=== PATIENT | male | born 1960 | race Hispanic/Latino ===

== ENCOUNTER 2021-12-13 14:40 | Inpatient (IN) | payer OTHER ==
[~2021-12-13] VITALS: Ht 167.6 cm; Wt 63.8 kg
[2021-12-13] MEDS ORDERED: PANTOPRAZOLE 40 MG/VIAL IVP ONE (15:00)
[2021-12-13] MEDS ORDERED: 0.9%NACL 1000ML 1,000 ML IV ONE (15:00)
[2021-12-13] MEDS ORDERED: ONDANSETRON 4MG INJ IVP ONE (15:00)
[2021-12-13 15:09] LABS: BASOPHILS % (AUTO) 0.2 % (0.0-5.0); HEMATOCRIT 40.3 % (42-54); LYMPHOCYTES % (AUTO) 4.8 % (21.0-51.0); MEAN CORPUSCULAR HEMOGLOBIN 35.7 pg (27.0-33.0); MEAN CORPUSCULAR HGB CONC 38.2 g/dL (32.0-36.0); MEAN CORPUSCULAR VOLUME 93.5 fL (79-99); NEUTROPHILS % (AUTO) 86.7 % (40.0-77.0); PLATELET COUNT (AUTO) 205 K/uL (130-400); RED BLOOD CELL COUNT(AUTO) 4.31 MIL/uL (4.50-6.20); RED CELL DISTRIBUTION WIDTH 11.7 % (11.0-15.5)
[2021-12-13 15:27] LABS: ALBUMIN 4.4 g/dL (3.5-5.0); CREATININE 1.8 mg/dL (0.5-1.5); POTASSIUM 3.2 mmol/L (3.5-5.1); TOTAL PROTEIN, SERUM 8.3 g/dL (6.0-8.3)
[2021-12-13 15:31] LABS: INR 1.05 (0.85-1.15); PROTHROMBIN TIME 11.4 SEC (9.6-11.6)
[2021-12-13 15:32] LABS: PARTIAL THROMBOPLASTIN TIME 29.1 SEC (26.3-35.5)
[2021-12-13 15:40] LABS: APPEARANCE,URINE CLEAR (CLEAR); BILIRUBIN,URINE LARGE (NEGATIVE); COLOR,URINE YELLOW (YELLOW); GLUCOSE, URINE (UA) NEGATIVE (NEGATIVE); KETONES,URINE 15 mg/dL (NEGATIVE); LEUKOCYTE ESTERASE ,URINE NEGATIVE (NEGATIVE); NITRATE,URINE NEGATIVE (NEGATIVE); OCCULT BLOOD,URINE NEGATIVE (NEGATIVE); PROTEIN,URINE TRACE mg/dL (NEGATIVE); UROBILINOGEN,URINE 0.2 mg/dL (0.2-1.0)
[2021-12-13 15:46] LABS: AMPHET/METH SCREEN,URINE NEGATIVE (NEGATIVE); BARBITURATE SCREEN, URINE NEGATIVE (NEGATIVE); BENZODIAZEPINES SCREEN,URINE NEGATIVE (NEGATIVE); CANNABINOID SCREEN,URINE POSITIVE (NEGATIVE); COCAINE SCREEN,URINE POSITIVE (NEGATIVE); PHENCYCLIDINE SCREEN,URINE NEGATIVE (NEGATIVE)
[2021-12-13 15:56] LABS: RBC,URINE 0-1 /HPF (0-1); WBC,URINE 0-1 /HPF (0-1)
[2021-12-13 15:57] LABS: BACTERIA,URINE Few /HPF (None Seen); SQUAMOUS EPITHELIAL CELL,UR Rare /HPF (0-2)
[2021-12-13] MEDS ORDERED: 0.9%NACL 1000ML 1,000 ML IV SCH (16:00)
[2021-12-13] MEDS ORDERED: LORAZEPAM 2 MG/ML 1 ML VIAL IVP PRN (20:30)
[2021-12-13] MEDS ORDERED: PHARMACY COMMUNICATION MISC PRN (20:30)
[2021-12-13] MEDS ORDERED: HEPARIN 5,000 UNIT VIAL SQ SCH (21:00)
[2021-12-13] MEDS: M.V.I. IV [ADULT] 10 ML, FOLIC ACID 1 MG, THIAMINE HCL 100 MG in 0.9%NACL 1000ML 1,000 ML IV SCH (21:16)
[2021-12-13] MEDS: CHLORDIAZEPOXIDE HCL 25 MG CAP PO SCH (21:16)
[2021-12-13] MEDS: PANTOPRAZOLE 40 MG/VIAL IVP SCH (21:16)
[2021-12-13 21:50] LABS: CREATININE,URINE RANDOM 251 mg/dL (30-135); SODIUM,URINE RANDOM < 14 mmol/l (40-220)
[2021-12-13] MEDS: KCL 20 MEQ ERTAB PO PRN (22:29)
[2021-12-13 22:55] VITALS: BP 119/74
[2021-12-13] MEDS: ONDANSETRON 4MG INJ IV PRN (23:24)
[2021-12-13] MEDS ORDERED: SODIUM CHLORIDE 7% INHALATION 4 ML VIAL.NEB IH ONE (23:53)
[2021-12-14] MEDS: KCL 20 MEQ ERTAB PO PRN ×3 (00:34→18:11)
[2021-12-14] MEDS: POTASSIUM CHLORIDE 10% ELIXIR 20 MEQ/15 ML UDCUP PO PRN (02:44)
[2021-12-14 03:45] VITALS: BP 126/78
[2021-12-14] MEDS: CHLORDIAZEPOXIDE HCL 25 MG CAP PO SCH ×3 (03:55→20:05)
[2021-12-14 05:39] LABS: BASOPHILS % (AUTO) 0.1 % (0.0-5.0); HEMATOCRIT 32.9 % (42-54); MEAN CORPUSCULAR HEMOGLOBIN 35.4 pg (27.0-33.0); MEAN CORPUSCULAR HGB CONC 36.8 g/dL (32.0-36.0); MEAN CORPUSCULAR VOLUME 96.2 fL (79-99); MONOCYTES % (AUTO) 11.6 % (3.0-13.0); NEUTROPHILS % (AUTO) 81.4 % (40.0-77.0); PLATELET COUNT (AUTO) 135 K/uL (130-400); RED BLOOD CELL COUNT(AUTO) 3.42 MIL/uL (4.50-6.20); RED CELL DISTRIBUTION WIDTH 11.9 % (11.0-15.5); WHITE BLOOD COUNT (AUTO) 6.8 K/uL (4.8-10.8)
[2021-12-14 05:56] LABS: CREATININE 0.8 mg/dL (0.5-1.5); MAGNESIUM 1.5 mg/dL (1.80-2.40); PHOSPHORUS 2.1 mg/dL (2.5-4.9); POTASSIUM 3.5 mmol/L (3.5-5.1)
[2021-12-14] MEDS: MAGNESIUM 2GM PREMIX 50ML 50 ML IV PRN (06:12)
[2021-12-14] MEDS ORDERED: SODIUM CHLORIDE 7% INHALATION 4 ML VIAL.NEB IH ONE (06:15)
[2021-12-14 08:50] VITALS: BP 119/71
[2021-12-14] MEDS: PANTOPRAZOLE 40 MG/VIAL IVP SCH ×2 (08:54→20:05)
[2021-12-14] MEDS ORDERED: OCTREOTIDE ACETATE 100 MCG/ML AMP SQ SCH (10:30)
[2021-12-14] MEDS ORDERED: COMPOUND IV REFRIGERATED 1 EACH IVSOLN MISC PRN (10:30)
[2021-12-14] MEDS ORDERED: OCTREOTIDE ACETATE 1,250 MCG in 0.9% NACL 250ML 250 ML IV SCH (10:30)
[2021-12-14 11:44] LABS: HEMATOCRIT 34.7 % (42-54)
[2021-12-14 11:53] LABS: CREATININE 0.7 mg/dL (0.5-1.5); POTASSIUM 3.7 mmol/L (3.5-5.1)
[2021-12-14 12:00] VITALS: BP 152/94
[2021-12-14 16:00] VITALS: BP 163/94
[2021-12-14 17:42] LABS: HEMATOCRIT 33.3 % (42-54)
[2021-12-14] MEDS: LIDOCAINE HCL 2% VISCOUS 15 ML UDCUP PO SCH ×2 (18:11→23:20)
[2021-12-14 19:59] VITALS: BP 153/88
[2021-12-14] MEDS: M.V.I. IV [ADULT] 10 ML, FOLIC ACID 1 MG, THIAMINE HCL 100 MG in 0.9%NACL 1000ML 1,000 ML IV SCH (20:06)
[2021-12-14 23:48] VITALS: BP 132/77
[2021-12-15] VITALS (22 sets, daily range): BP systolic 129–186; BP diastolic 66–103
[2021-12-15 00:33] LABS: HEMATOCRIT 32.6 % (42-54)
[2021-12-15] MEDS: CHLORDIAZEPOXIDE HCL 25 MG CAP PO SCH (03:31)
[2021-12-15] MEDS: LIDOCAINE HCL 2% VISCOUS 15 ML UDCUP PO SCH ×3 (05:31→17:35)
[2021-12-15 05:48] LABS: HEMATOCRIT 31.7 % (42-54)
[2021-12-15 05:58] LABS: MAGNESIUM 1.8 mg/dL (1.80-2.40)
[2021-12-15 06:02] LABS: POTASSIUM 2.9 mmol/L (3.5-5.1)
[2021-12-15] MEDS: MAGNESIUM 2GM PREMIX 50ML 50 ML IV PRN (06:27)
[2021-12-15] MEDS: LIDOCAINE HCL-MPF 1% 2ML VIAL IV PRN (06:28)
[2021-12-15] MEDS: POTASSIUM CHLORIDE 10MEQ/100ML 100 ML IV PRN ×2 (06:28→08:32)
[2021-12-15 08:21] LABS: HEMATOCRIT 31.7 % (42-54); POTASSIUM 2.9 mmol/L (3.5-5.1)
[2021-12-15 08:24] LABS: MEAN CORPUSCULAR HEMOGLOBIN 35.7 pg (27.0-33.0); MEAN CORPUSCULAR HGB CONC 36.4 g/dL (32.0-36.0); MEAN CORPUSCULAR VOLUME 97.9 fL (79-99); RED BLOOD CELL COUNT(AUTO) 3.28 MIL/uL (4.50-6.20); RED CELL DISTRIBUTION WIDTH 11.7 % (11.0-15.5); WHITE BLOOD COUNT (AUTO) 3.2 K/uL (4.8-10.8)
[2021-12-15 08:29] LABS: CREATININE 0.7 mg/dL (0.5-1.5)
[2021-12-15] MEDS: PANTOPRAZOLE 40 MG/VIAL IVP SCH ×2 (08:32→21:11)
[2021-12-15 11:23] LABS: HEMATOCRIT 34.1 % (42-54)
[2021-12-15] MEDS ORDERED: PROPOFOL 10 MG/ML 20ML VIAL IV ONE (16:00)
[2021-12-15] MEDS ORDERED: HYDRALAZINE 20MG/ML VIAL IV PRN (17:30)
[2021-12-15] MEDS ORDERED: HYDRALAZINE 25MG TABLET PO SCH (17:41)
[2021-12-15] MEDS: HYDRALAZINE 25MG TABLET PO SCH (17:51)
[2021-12-15] MEDS ORDERED: AMLODIPINE 5 MG TAB PO ONE (18:00)
[2021-12-15] MEDS ORDERED: LIDOCAINE HCL 2% VISCOUS 15 ML UDCUP PO PRN (19:30)
[2021-12-15] MEDS: M.V.I. IV [ADULT] 10 ML, FOLIC ACID 1 MG, THIAMINE HCL 100 MG in 0.9%NACL 1000ML 1,000 ML IV SCH (21:00)
[2021-12-15] MEDS: KCL 20 MEQ ERTAB PO PRN (21:11)
[2021-12-16 03:27] VITALS: BP 128/82
[2021-12-16 04:57] LABS: BASOPHILS % (AUTO) 0.8 % (0.0-5.0); EOSINOPHILS % (AUTO) 1.7 % (0.0-8.0); LYMPHOCYTES % (AUTO) 18.8 % (21.0-51.0); MEAN CORPUSCULAR HEMOGLOBIN 35.4 pg (27.0-33.0); MEAN CORPUSCULAR HGB CONC 35.8 g/dL (32.0-36.0); MEAN CORPUSCULAR VOLUME 98.9 fL (79-99); MONOCYTES % (AUTO) 10.5 % (3.0-13.0); NEUTROPHILS % (AUTO) 67.6 % (40.0-77.0); PLATELET COUNT (AUTO) 127 K/uL (130-400); RED BLOOD CELL COUNT(AUTO) 3.64 MIL/uL (4.50-6.20); RED CELL DISTRIBUTION WIDTH 11.6 % (11.0-15.5); WHITE BLOOD COUNT (AUTO) 3.6 K/uL (4.8-10.8)
[2021-12-16 05:09] LABS: CREATININE 0.7 mg/dL (0.5-1.5); MAGNESIUM 1.8 mg/dL (1.80-2.40); POTASSIUM 3.4 mmol/L (3.5-5.1)
[2021-12-16] MEDS: KCL 20 MEQ ERTAB PO PRN ×2 (05:46→10:35)
[2021-12-16] MEDS: MAGNESIUM 2GM PREMIX 50ML 50 ML IV PRN (05:47)
[2021-12-16 08:00] VITALS: BP 140/73
[2021-12-16] MEDS: M.V.I. IV [ADULT] 10 ML, FOLIC ACID 1 MG, THIAMINE HCL 100 MG in 0.9%NACL 1000ML 1,000 ML IV SCH ×2 (08:40→22:11)
[2021-12-16] MEDS: AMLODIPINE 5 MG TAB PO SCH (09:49)
[2021-12-16] MEDS: PANTOPRAZOLE 40 MG/VIAL IVP SCH ×2 (09:49→20:29)
[2021-12-16 11:47] VITALS: BP 131/71
[2021-12-16] MEDS ORDERED: PANT40TA PO (12:01)
[2021-12-16] MEDS ORDERED: FOLI0.4T6 PO (12:01)
[2021-12-16] MEDS ORDERED: THIA500T3 PO (12:01)
[2021-12-16 13:10] LABS: OPIATES SCREEN URINE Negative ng/mL (Cutoff=300)
[2021-12-16 20:00] VITALS: BP 145/85
[2021-12-16] MEDS: PAROXETINE HCL 20 MG TABLET PO SCH (20:29)
[2021-12-17] VITALS: BP 144/80
[2021-12-17 04:00] VITALS: BP 147/77
[2021-12-17 05:30] LABS: CREATININE 0.6 mg/dL (0.5-1.5); POTASSIUM 3.5 mmol/L (3.5-5.1)
[2021-12-17 05:32] LABS: HEMATOCRIT 32.8 % (42-54); MEAN CORPUSCULAR HEMOGLOBIN 34.7 pg (27.0-33.0); MEAN CORPUSCULAR HGB CONC 35.7 g/dL (32.0-36.0); MEAN CORPUSCULAR VOLUME 97.3 fL (79-99); RED BLOOD CELL COUNT(AUTO) 3.37 MIL/uL (4.50-6.20); RED CELL DISTRIBUTION WIDTH 11.2 % (11.0-15.5); WHITE BLOOD COUNT (AUTO) 3.7 K/uL (4.8-10.8)
[2021-12-17] MEDS: POTASSIUM CHLORIDE 10% ELIXIR 20 MEQ/15 ML UDCUP PO PRN (06:58)
[2021-12-17 08:00] VITALS: BP 163/87
[2021-12-17] MEDS: PAROXETINE HCL 20 MG TABLET PO SCH (09:49)
[2021-12-17] MEDS: AMLODIPINE 5 MG TAB PO SCH (09:49)
[2021-12-17] MEDS: PANTOPRAZOLE 40 MG/VIAL IVP SCH ×2 (09:49→19:50)
[2021-12-17 12:00] VITALS: BP 125/68
[2021-12-17] MEDS ORDERED: MAGNESIUM 2GM PREMIX 50ML 50 ML IV PRN (15:00)
[2021-12-17 16:00] VITALS: BP 149/91
[2021-12-17] MEDS: MAGNESIUM 2GM PREMIX 50ML 50 ML IV PRN (16:05)
[2021-12-17] MEDS ORDERED: FLUOXETINE HCL 20 MG CAPSULE PO ONE (16:30)
[2021-12-17] MEDS: HYDRALAZINE 25MG TABLET PO SCH (16:51)
[2021-12-17] MEDS: M.V.I. IV [ADULT] 10 ML, FOLIC ACID 1 MG, THIAMINE HCL 100 MG in 0.9%NACL 1000ML 1,000 ML IV SCH (19:50)
[2021-12-17 20:00] VITALS: BP 152/78
[2021-12-17] MEDS: ONDANSETRON 4MG INJ IV PRN (20:44)
[2021-12-18] VITALS: BP 160/84
[2021-12-18] MEDS ORDERED: CHLORDIAZEPOXIDE HCL 10 MG CAPSULE PO PRN ×2 (01:20→01:30)
[2021-12-18] MEDS: ACETAMINOPHEN 325 MG TAB PO PRN ×3 (01:29→18:41)
[2021-12-18] MEDS ORDERED: CHLORDIAZEPOXIDE HCL 25 MG CAP ONE (01:34)
[2021-12-18 04:00] VITALS: BP 128/69
[2021-12-18] MEDS: MAGNESIUM 2GM PREMIX 50ML 50 ML IV PRN (05:37)
[2021-12-18 07:45] VITALS: BP 98/60
[2021-12-18] MEDS: FLUOXETINE HCL 10 MG CAPSULE PO SCH (08:16)
[2021-12-18] MEDS: PANTOPRAZOLE 40 MG/VIAL IVP SCH ×2 (08:16→20:34)
[2021-12-18] MEDS: AMLODIPINE 5 MG TAB PO SCH (08:16)
[2021-12-18] MEDS ORDERED: MAGNESIUM 2GM PREMIX 50ML 50 ML IV PRN (08:30)
[2021-12-18] MEDS ORDERED: CHLORDIAZEPOXIDE HCL 10 MG CAPSULE PO SCH (09:00)
[2021-12-18 11:45] VITALS: BP 129/76
[2021-12-18 12:14] LABS: APPEARANCE,URINE CLEAR (CLEAR); BILIRUBIN,URINE NEGATIVE (NEGATIVE); COLOR,URINE YELLOW (YELLOW); GLUCOSE, URINE (UA) NEGATIVE (NEGATIVE); KETONES,URINE 5 mg/dL (NEGATIVE); LEUKOCYTE ESTERASE ,URINE NEGATIVE (NEGATIVE); NITRATE,URINE NEGATIVE (NEGATIVE); OCCULT BLOOD,URINE NEGATIVE (NEGATIVE); PH,URINE 6.5 (5.0-8.0); PROTEIN,URINE NEGATIVE (NEGATIVE)
[2021-12-18 12:32] LABS: BACTERIA,URINE Rare /HPF (None Seen); RBC,URINE 0-1 /HPF (0-1); SQUAMOUS EPITHELIAL CELL,UR Rare /HPF (0-2); WBC,URINE 0-1 /HPF (0-1)
[2021-12-18 15:00] VITALS: BP 143/72
[2021-12-18] MEDS: ZOSYN 3.375GM +NS 50ML IV SCH ×2 (17:37→23:55)
[2021-12-18] MEDS: HYDRALAZINE 25MG TABLET PO SCH (17:38)
[2021-12-18] MEDS: ONDANSETRON 4MG INJ IV PRN (18:44)
[2021-12-18 19:00] VITALS: BP 145/82
[2021-12-18] MEDS: M.V.I. IV [ADULT] 10 ML, FOLIC ACID 1 MG, THIAMINE HCL 100 MG in 0.9%NACL 1000ML 1,000 ML IV SCH (20:34)
[2021-12-19 00:23] VITALS: BP 104/57
[2021-12-19 04:39] VITALS: BP 138/67
[2021-12-19 04:56] LABS: BASOPHILS % (AUTO) 0.3 % (0.0-5.0); EOSINOPHILS % (AUTO) 0.3 % (0.0-8.0); HEMATOCRIT 29.7 % (42-54); LYMPHOCYTES % (AUTO) 8.5 % (21.0-51.0); MEAN CORPUSCULAR HEMOGLOBIN 35.6 pg (27.0-33.0); MEAN CORPUSCULAR HGB CONC 37.4 g/dL (32.0-36.0); MEAN CORPUSCULAR VOLUME 95.2 fL (79-99); NEUTROPHILS % (AUTO) 73.9 % (40.0-77.0); PLATELET COUNT (AUTO) 158 K/uL (130-400); RED BLOOD CELL COUNT(AUTO) 3.12 MIL/uL (4.50-6.20); RED CELL DISTRIBUTION WIDTH 11.6 % (11.0-15.5); WHITE BLOOD COUNT (AUTO) 3.1 K/uL (4.8-10.8)
[2021-12-19 05:38] LABS: CREATININE 0.6 mg/dL (0.5-1.5); MAGNESIUM 1.8 mg/dL (1.80-2.40)
[2021-12-19 05:45] LABS: POTASSIUM 2.6 mmol/L (3.5-5.1)
[2021-12-19] MEDS: LIDOCAINE HCL-MPF 1% 2ML VIAL IV PRN ×2 (05:50→09:43)
[2021-12-19] MEDS: POTASSIUM CHLORIDE 10MEQ/100ML 100 ML IV PRN ×2 (05:50→09:42)
[2021-12-19] MEDS: ACETAMINOPHEN 325 MG TAB PO PRN (05:51)
[2021-12-19] MEDS: KCL 20 MEQ ERTAB PO PRN ×4 (05:51→14:31)
[2021-12-19] MEDS: MAGNESIUM 2GM PREMIX 50ML 50 ML IV PRN (06:37)
[2021-12-19 08:00] VITALS: BP 117/56
[2021-12-19] MEDS: PANTOPRAZOLE 40 MG/VIAL IVP SCH ×2 (09:40→21:15)
[2021-12-19] MEDS: FLUOXETINE HCL 10 MG CAPSULE PO SCH (09:40)
[2021-12-19] MEDS: AMLODIPINE 5 MG TAB PO SCH (09:40)
[2021-12-19] MEDS: ZOSYN 3.375GM +NS 50ML IV SCH ×2 (09:41→16:04)
[2021-12-19 11:53] VITALS: BP 101/66
[2021-12-19] MEDS ORDERED: PHARMACY COMMUNICATION MISC SCH (15:00)
[2021-12-19 16:00] VITALS: BP 134/74
[2021-12-19] MEDS ORDERED: VANCOMYCIN 1.5 GM/250 ML BAG 250 ML IV ONE (17:00)
[2021-12-19] MEDS: HYDRALAZINE 25MG TABLET PO SCH (17:42)
[2021-12-19 19:20] VITALS: BP 129/68
[2021-12-19] MEDS: PHARMACY COMMUNICATION MISC SCH ×2 (20:30→22:30)
[2021-12-19] MEDS: M V I IV SCH (21:12)
[2021-12-19] MEDS: [UNRECOGNIZED DRUG - OTHER] IV SCH (21:12)
[2021-12-19] MEDS: THIAMINE HCL IV SCH (21:12)
[2021-12-19] MEDS: FOLIC ACID IV SCH (21:12)
[2021-12-20] MEDS: ZOSYN 3.375GM +NS 50ML IV SCH ×2 (00:04→11:43)
[2021-12-20 00:17] VITALS: BP 133/75
[2021-12-20 03:36] VITALS: BP 119/73
[2021-12-20 04:26] LABS: HEMATOCRIT 31.7 % (42-54); MEAN CORPUSCULAR HEMOGLOBIN 34.8 pg (27.0-33.0); MEAN CORPUSCULAR HGB CONC 36.6 g/dL (32.0-36.0); MEAN CORPUSCULAR VOLUME 95.2 fL (79-99); RED BLOOD CELL COUNT(AUTO) 3.33 MIL/uL (4.50-6.20); RED CELL DISTRIBUTION WIDTH 11.6 % (11.0-15.5); WHITE BLOOD COUNT (AUTO) 4.4 K/uL (4.8-10.8)
[2021-12-20 04:39] LABS: CREATININE 0.7 mg/dL (0.5-1.5)
[2021-12-20 04:40] LABS: POTASSIUM 2.7 mmol/L (3.5-5.1)
[2021-12-20] MEDS: KCL 20 MEQ ERTAB PO PRN ×5 (05:18→20:26)
[2021-12-20] MEDS ORDERED: VANCOMYCIN 750MG VIAL IVPB SCH (06:00)
[2021-12-20] MEDS: LIDOCAINE HCL-MPF 1% 2ML VIAL IV PRN ×2 (06:44→11:50)
[2021-12-20] MEDS: POTASSIUM CHLORIDE 10MEQ/100ML 100 ML IV PRN ×2 (06:44→11:50)
[2021-12-20 07:35] VITALS: BP 136/81
[2021-12-20 11:35] VITALS: BP 142/80
[2021-12-20] MEDS: AMLODIPINE 5 MG TAB PO SCH (11:43)
[2021-12-20] MEDS: PANTOPRAZOLE 40 MG/VIAL IVP SCH ×2 (11:43→20:18)
[2021-12-20] MEDS: FLUOXETINE HCL 10 MG CAPSULE PO SCH (11:43)
[2021-12-20 15:35] VITALS: BP 115/67
[2021-12-20] MEDS: HYDRALAZINE 25MG TABLET PO SCH (15:38)
[2021-12-20] MEDS: CEFAZOLIN SODIUM 1 GM VIAL IVP SCH ×2 (17:06→23:13)
[2021-12-20 20:00] VITALS: BP 126/66
[2021-12-20] MEDS: THIAMINE HCL IV SCH (21:50)
[2021-12-20] MEDS: M V I IV SCH (21:50)
[2021-12-20] MEDS: [UNRECOGNIZED DRUG - OTHER] IV SCH (21:50)
[2021-12-20] MEDS: FOLIC ACID IV SCH (21:50)
[2021-12-21] VITALS: BP 104/68
[2021-12-21 04:00] VITALS: BP 119/62
[2021-12-21] MEDS: CEFAZOLIN SODIUM 1 GM VIAL IVP SCH ×3 (06:01→23:08)
[2021-12-21 07:29] LABS: BASOPHILS % (AUTO) 0.8 % (0.0-5.0); EOSINOPHILS % (AUTO) 1.8 % (0.0-8.0); HEMATOCRIT 29.2 % (42-54); MEAN CORPUSCULAR HEMOGLOBIN 34.9 pg (27.0-33.0); MEAN CORPUSCULAR HGB CONC 35.6 g/dL (32.0-36.0); MONOCYTES % (AUTO) 16.2 % (3.0-13.0); NEUTROPHILS % (AUTO) 64.4 % (40.0-77.0); PLATELET COUNT (AUTO) 278 K/uL (130-400); RED BLOOD CELL COUNT(AUTO) 2.98 MIL/uL (4.50-6.20); RED CELL DISTRIBUTION WIDTH 11.9 % (11.0-15.5); WHITE BLOOD COUNT (AUTO) 3.9 K/uL (4.8-10.8)
[2021-12-21 07:55] LABS: ALBUMIN 2.8 g/dL (3.5-5.0); CREATININE 0.6 mg/dL (0.5-1.5); CRP QUANTITATIVE 74.1 mg/L (0.00-9.0); MAGNESIUM 1.1 mg/dL (1.80-2.40); POTASSIUM 3.5 mmol/L (3.5-5.1); TOTAL PROTEIN, SERUM 6.4 g/dL (6.0-8.3)
[2021-12-21 08:00] VITALS: BP 105/65
[2021-12-21] MEDS: AMLODIPINE 5 MG TAB PO SCH (09:38)
[2021-12-21] MEDS: FLUOXETINE HCL 10 MG CAPSULE PO SCH (09:38)
[2021-12-21] MEDS: PANTOPRAZOLE 40 MG/VIAL IVP SCH ×2 (09:38→20:15)
[2021-12-21 12:00] VITALS: BP 111/63
[2021-12-21 16:00] VITALS: BP 113/72
[2021-12-21] MEDS: HYDRALAZINE 25MG TABLET PO SCH (18:00)
[2021-12-21 20:00] VITALS: BP 137/78
[2021-12-21] MEDS: FOLIC ACID IV SCH (20:15)
[2021-12-21] MEDS: [UNRECOGNIZED DRUG - OTHER] IV SCH (20:15)
[2021-12-21] MEDS: M V I IV SCH (20:15)
[2021-12-21] MEDS: THIAMINE HCL IV SCH (20:15)
[2021-12-21] MEDS: MAGNESIUM 2GM PREMIX 50ML 50 ML IV PRN (21:45)
[2021-12-21] MEDS: KCL 20 MEQ ERTAB PO PRN ×2 (21:46→23:51)
[2021-12-21] MEDS: ACETAMINOPHEN 325 MG TAB PO PRN (22:18)
[2021-12-22] VITALS: BP 122/69
[2021-12-22 04:00] VITALS: BP 124/83
[2021-12-22 04:56] LABS: CREATININE 0.6 mg/dL (0.5-1.5); MAGNESIUM 1.3 mg/dL (1.80-2.40); POTASSIUM 3.6 mmol/L (3.5-5.1)
[2021-12-22 05:22] LABS: BASOPHILS % (AUTO) 1.6 % (0.0-5.0); EOSINOPHILS % (AUTO) 4.8 % (0.0-8.0); HEMATOCRIT 26.7 % (42-54); LYMPHOCYTES % (AUTO) 20.2 % (21.0-51.0); MEAN CORPUSCULAR HEMOGLOBIN 34.7 pg (27.0-33.0); MEAN CORPUSCULAR HGB CONC 35.6 g/dL (32.0-36.0); MEAN CORPUSCULAR VOLUME 97.4 fL (79-99); MONOCYTES % (AUTO) 14.9 % (3.0-13.0); PLATELET COUNT (AUTO) 334 K/uL (130-400); RED BLOOD CELL COUNT(AUTO) 2.74 MIL/uL (4.50-6.20); RED CELL DISTRIBUTION WIDTH 11.9 % (11.0-15.5); WHITE BLOOD COUNT (AUTO) 3.8 K/uL (4.8-10.8)
[2021-12-22] MEDS: KCL 20 MEQ ERTAB PO PRN ×2 (05:31→18:45)
[2021-12-22] MEDS: MAGNESIUM 2GM PREMIX 50ML 50 ML IV PRN (05:31)
[2021-12-22] MEDS: CEFAZOLIN SODIUM 1 GM VIAL IVP SCH ×3 (06:18→23:03)
[2021-12-22 08:00] VITALS: BP 112/67
[2021-12-22] MEDS: AMLODIPINE 5 MG TAB PO SCH (09:24)
[2021-12-22] MEDS: PANTOPRAZOLE 40 MG/VIAL IVP SCH ×2 (09:24→20:10)
[2021-12-22] MEDS: FLUOXETINE HCL 10 MG CAPSULE PO SCH (09:25)
[2021-12-22 12:00] VITALS: BP 123/74
[2021-12-22 16:00] VITALS: BP 106/69
[2021-12-22] MEDS: HYDRALAZINE 25MG TABLET PO SCH (18:00)
[2021-12-22 20:00] VITALS: BP 120/74
[2021-12-22] MEDS: THIAMINE HCL IV SCH (20:11)
[2021-12-22] MEDS: [UNRECOGNIZED DRUG - OTHER] IV SCH (20:11)
[2021-12-22] MEDS: M V I IV SCH (20:11)
[2021-12-22] MEDS: FOLIC ACID IV SCH (20:11)
[2021-12-23] VITALS (7 sets, daily range): BP systolic 64–129; BP diastolic 57–99
[2021-12-23 05:27] LABS: BASOPHILS % (AUTO) 1.2 % (0.0-5.0); EOSINOPHILS % (AUTO) 4.9 % (0.0-8.0); HEMATOCRIT 29.7 % (42-54); LYMPHOCYTES % (AUTO) 19.6 % (21.0-51.0); MEAN CORPUSCULAR HEMOGLOBIN 34.4 pg (27.0-33.0); MEAN CORPUSCULAR HGB CONC 34.7 g/dL (32.0-36.0); MEAN CORPUSCULAR VOLUME 99.3 fL (79-99); MONOCYTES % (AUTO) 13.5 % (3.0-13.0); NEUTROPHILS % (AUTO) 59.8 % (40.0-77.0); PLATELET COUNT (AUTO) 440 K/uL (130-400); RED BLOOD CELL COUNT(AUTO) 2.99 MIL/uL (4.50-6.20); RED CELL DISTRIBUTION WIDTH 12.1 % (11.0-15.5); WHITE BLOOD COUNT (AUTO) 4.9 K/uL (4.8-10.8)
[2021-12-23 05:30] LABS: CREATININE 0.7 mg/dL (0.5-1.5); MAGNESIUM 1.3 mg/dL (1.80-2.40); POTASSIUM 4.4 mmol/L (3.5-5.1)
[2021-12-23] MEDS: CEFAZOLIN SODIUM 1 GM VIAL IVP SCH ×3 (05:48→23:20)
[2021-12-23] MEDS: AMLODIPINE 5 MG TAB PO SCH (08:19)
[2021-12-23] MEDS: PANTOPRAZOLE 40 MG/VIAL IVP SCH ×2 (08:19→20:59)
[2021-12-23] MEDS: FLUOXETINE HCL 10 MG CAPSULE PO SCH (08:20)
[2021-12-23] MEDS ORDERED: FLUO10CA21 PO (09:55)
[2021-12-23] MEDS ORDERED: MAGNESIUM OXIDE 400 MG TABLET PO SCH (10:30)
[2021-12-23] MEDS: MAGNESIUM 2GM PREMIX 50ML 50 ML IV SCH (11:00)
[2021-12-23] MEDS: HYDRALAZINE 25MG TABLET PO SCH (15:13)
[2021-12-23] MEDS: NYSTATIN 30 GM CREAM.GM. TP SCH (20:59)
[2021-12-23] MEDS: THIAMINE HCL IV SCH (20:59)
[2021-12-23] MEDS: M V I IV SCH (20:59)
[2021-12-23] MEDS: [UNRECOGNIZED DRUG - OTHER] IV SCH (20:59)
[2021-12-23] MEDS: FOLIC ACID IV SCH (20:59)
[2021-12-24 03:51] VITALS: BP 113/63
[2021-12-24] MEDS: CEFAZOLIN SODIUM 1 GM VIAL IVP SCH ×3 (06:25→22:07)
[2021-12-24] MEDS: MAGNESIUM 2GM PREMIX 50ML 50 ML IV SCH (06:26)
[2021-12-24 08:00] VITALS: BP 110/66
[2021-12-24] MEDS: AMLODIPINE 5 MG TAB PO SCH (09:53)
[2021-12-24] MEDS: PANTOPRAZOLE 40 MG/VIAL IVP SCH ×2 (09:53→20:37)
[2021-12-24] MEDS: FLUOXETINE HCL 10 MG CAPSULE PO SCH (09:53)
[2021-12-24] MEDS: NYSTATIN 30 GM CREAM.GM. TP SCH ×2 (09:57→20:37)
[2021-12-24 12:00] VITALS: BP 120/69
[2021-12-24] MEDS: HYDRALAZINE 25MG TABLET PO SCH (14:50)
[2021-12-24 16:00] VITALS: BP 136/69
[2021-12-24 20:00] VITALS: BP 120/68
[2021-12-24 23:40] VITALS: BP 108/61
[2021-12-25 03:25] VITALS: BP 118/62
[2021-12-25] MEDS: CEFAZOLIN SODIUM 1 GM VIAL IVP SCH ×3 (05:37→23:31)
[2021-12-25] MEDS: MAGNESIUM 2GM PREMIX 50ML 50 ML IV SCH (05:38)
[2021-12-25] MEDS: MAGNESIUM OXIDE 400 MG TABLET PO SCH ×2 (07:01→09:13)
[2021-12-25 07:30] VITALS: BP 116/75
[2021-12-25] MEDS: AMLODIPINE 5 MG TAB PO SCH (09:13)
[2021-12-25] MEDS: FLUOXETINE HCL 10 MG CAPSULE PO SCH (09:13)
[2021-12-25] MEDS: NYSTATIN 30 GM CREAM.GM. TP SCH ×2 (09:14→20:44)
[2021-12-25] MEDS: PANTOPRAZOLE 40 MG/VIAL IVP SCH ×2 (09:14→20:44)
[2021-12-25 11:00] VITALS: BP 122/67
[2021-12-25] MEDS ORDERED: THIAMINE HCL 100 MG TABLET PO ONE (13:00)
[2021-12-25 15:30] VITALS: BP 124/73
[2021-12-25] MEDS: HYDRALAZINE 25MG TABLET PO SCH (18:00)
[2021-12-25 21:23] VITALS: BP 148/74
[2021-12-26 00:16] VITALS: BP 142/75
[2021-12-26 04:33] VITALS: BP 137/82
[2021-12-26 05:14] LABS: ALBUMIN 3.4 g/dL (3.5-5.0); CREATININE 0.8 mg/dL (0.5-1.5); MAGNESIUM 1.6 mg/dL (1.80-2.40); TOTAL PROTEIN, SERUM 7.1 g/dL (6.0-8.3)
[2021-12-26] MEDS: CEFAZOLIN SODIUM 1 GM VIAL IVP SCH ×3 (06:25→23:45)
[2021-12-26] MEDS: MAGNESIUM OXIDE 400 MG TABLET PO SCH ×2 (06:26→07:47)
[2021-12-26] MEDS: PANTOPRAZOLE 40 MG/VIAL IVP SCH ×2 (07:47→20:48)
[2021-12-26] MEDS: THIAMINE HCL 100 MG TABLET PO SCH (07:47)
[2021-12-26] MEDS: AMLODIPINE 5 MG TAB PO SCH (07:48)
[2021-12-26] MEDS: NYSTATIN 30 GM CREAM.GM. TP SCH ×2 (07:48→20:48)
[2021-12-26] MEDS: FLUOXETINE HCL 10 MG CAPSULE PO SCH (07:48)
[2021-12-26 08:00] VITALS: BP 118/63
[2021-12-26 12:00] VITALS: BP 147/91
[2021-12-26 16:00] VITALS: BP 130/84
[2021-12-26] MEDS: HYDRALAZINE 25MG TABLET PO SCH (18:00)
[2021-12-26 20:52] VITALS: BP 129/64
[2021-12-27] VITALS: BP 105/58
[2021-12-27 04:00] VITALS: BP 135/77
[2021-12-27] MEDS: CEFAZOLIN SODIUM 1 GM VIAL IVP SCH ×3 (06:22→22:37)
[2021-12-27] MEDS: MAGNESIUM OXIDE 400 MG TABLET PO SCH ×2 (06:25→09:37)
[2021-12-27 08:00] VITALS: BP 130/83
[2021-12-27] MEDS: NYSTATIN 30 GM CREAM.GM. TP SCH ×2 (09:00→19:57)
[2021-12-27] MEDS: PANTOPRAZOLE 40 MG/VIAL IVP SCH ×2 (09:37→19:55)
[2021-12-27] MEDS: THIAMINE HCL 100 MG TABLET PO SCH (09:37)
[2021-12-27] MEDS: AMLODIPINE 5 MG TAB PO SCH (09:37)
[2021-12-27] MEDS: FLUOXETINE HCL 10 MG CAPSULE PO SCH (09:37)
[2021-12-27 12:00] VITALS: BP 132/74
[2021-12-27 16:00] VITALS: BP 86/67
[2021-12-27] MEDS: MAGNESIUM 2GM PREMIX 50ML 50 ML IV SCH (16:51)
[2021-12-27] MEDS: HYDRALAZINE 25MG TABLET PO SCH (16:51)
[2021-12-27 20:00] VITALS: BP 144/78
[2021-12-28 00:17] VITALS: BP 134/79
[2021-12-28 04:54] VITALS: BP 113/42
[2021-12-28] MEDS: CEFAZOLIN SODIUM 1 GM VIAL IVP SCH ×3 (05:46→22:50)
[2021-12-28 08:00] VITALS: BP 107/64
[2021-12-28] MEDS: FLUOXETINE HCL 10 MG CAPSULE PO SCH (09:20)
[2021-12-28] MEDS: PANTOPRAZOLE 40 MG/VIAL IVP SCH ×2 (09:20→21:59)
[2021-12-28] MEDS: MAGNESIUM OXIDE 400 MG TABLET PO SCH (09:20)
[2021-12-28] MEDS: THIAMINE HCL 100 MG TABLET PO SCH (09:20)
[2021-12-28] MEDS: AMLODIPINE 5 MG TAB PO SCH (09:20)
[2021-12-28] MEDS: NYSTATIN 30 GM CREAM.GM. TP SCH ×2 (09:21→22:06)
[2021-12-28 11:00] VITALS: BP 113/66
[2021-12-28] MEDS: CLOTRIMAZOLE 30 GM CREAM.GM. TP SCH (14:17)
[2021-12-28 16:00] VITALS: BP 127/66
[2021-12-28 20:07] VITALS: BP 131/76
[2021-12-29] VITALS (7 sets, daily range): BP systolic 111–142; BP diastolic 66–72
[2021-12-29] MEDS: CEFAZOLIN SODIUM 1 GM VIAL IVP SCH ×3 (06:48→22:08)
[2021-12-29 08:48] LABS: BASOPHILS % (AUTO) 1.6 % (0.0-5.0); EOSINOPHILS % (AUTO) 2.7 % (0.0-8.0); HEMATOCRIT 29.1 % (42-54); LYMPHOCYTES % (AUTO) 26.1 % (21.0-51.0); MEAN CORPUSCULAR HEMOGLOBIN 34.7 pg (27.0-33.0); MEAN CORPUSCULAR HGB CONC 34.7 g/dL (32.0-36.0); MONOCYTES % (AUTO) 12.4 % (3.0-13.0); NEUTROPHILS % (AUTO) 56.7 % (40.0-77.0); PLATELET COUNT (AUTO) 485 K/uL (130-400); RED BLOOD CELL COUNT(AUTO) 2.91 MIL/uL (4.50-6.20); RED CELL DISTRIBUTION WIDTH 12.1 % (11.0-15.5); WHITE BLOOD COUNT (AUTO) 3.7 K/uL (4.8-10.8)
[2021-12-29] MEDS: MAGNESIUM OXIDE 400 MG TABLET PO SCH (08:59)
[2021-12-29] MEDS: AMLODIPINE 5 MG TAB PO SCH (08:59)
[2021-12-29] MEDS: FLUOXETINE HCL 10 MG CAPSULE PO SCH (09:00)
[2021-12-29] MEDS: CLOTRIMAZOLE 30 GM CREAM.GM. TP SCH (09:00)
[2021-12-29] MEDS: NYSTATIN 30 GM CREAM.GM. TP SCH ×2 (09:00→22:05)
[2021-12-29] MEDS: THIAMINE HCL 100 MG TABLET PO SCH (09:00)
[2021-12-29] MEDS: PANTOPRAZOLE 40 MG/VIAL IVP SCH (09:00)
[2021-12-29 09:11] LABS: CREATININE 0.7 mg/dL (0.5-1.5); POTASSIUM 3.4 mmol/L (3.5-5.1)
[2021-12-29] MEDS: KCL 20 MEQ ERTAB PO PRN ×2 (12:18→14:49)
[2021-12-29] MEDS: PANTOPRAZOLE 40 MG TAB DR PO SCH (22:05)
[2021-12-29] MEDS: ACETAMINOPHEN 325 MG TAB PO PRN (22:09)
[2021-12-30 03:57] VITALS: BP 118/69
[2021-12-30 05:43] LABS: CREATININE 0.6 mg/dL (0.5-1.5); MAGNESIUM 1.4 mg/dL (1.80-2.40); POTASSIUM 3.9 mmol/L (3.5-5.1)
[2021-12-30] MEDS: CEFAZOLIN SODIUM 1 GM VIAL IVP SCH ×2 (06:58→17:33)
[2021-12-30] MEDS: MAGNESIUM 2GM PREMIX 50ML 50 ML IV SCH (07:12)
[2021-12-30 08:00] VITALS: BP 110/61
[2021-12-30] MEDS: THIAMINE HCL 100 MG TABLET PO SCH (10:17)
[2021-12-30] MEDS: AMLODIPINE 5 MG TAB PO SCH (10:17)
[2021-12-30] MEDS: MAGNESIUM OXIDE 400 MG TABLET PO SCH (10:17)
[2021-12-30] MEDS: FLUOXETINE HCL 10 MG CAPSULE PO SCH (10:17)
[2021-12-30] MEDS: NYSTATIN 30 GM CREAM.GM. TP SCH ×2 (10:18→21:40)
[2021-12-30] MEDS: PANTOPRAZOLE 40 MG TAB DR PO SCH ×2 (10:18→21:39)
[2021-12-30] MEDS: CLOTRIMAZOLE 30 GM CREAM.GM. TP SCH (10:18)
[2021-12-30 11:55] VITALS: BP 119/66
[2021-12-30 16:00] VITALS: BP 121/71
[2021-12-30 19:32] VITALS: BP 112/59
[2021-12-30 23:07] VITALS: BP 132/63
[2021-12-31] MEDS: CEFAZOLIN SODIUM 1 GM VIAL IVP SCH ×4 (00:07→23:04)
[2021-12-31 03:05] VITALS: BP 144/71
[2021-12-31 04:58] LABS: BASOPHILS % (AUTO) 1.8 % (0.0-5.0); EOSINOPHILS % (AUTO) 3.3 % (0.0-8.0); HEMATOCRIT 28.1 % (42-54); LYMPHOCYTES % (AUTO) 24.8 % (21.0-51.0); MEAN CORPUSCULAR HEMOGLOBIN 33.9 pg (27.0-33.0); MEAN CORPUSCULAR HGB CONC 34.5 g/dL (32.0-36.0); MEAN CORPUSCULAR VOLUME 98.3 fL (79-99); MONOCYTES % (AUTO) 10.8 % (3.0-13.0); NEUTROPHILS % (AUTO) 58.8 % (40.0-77.0); PLATELET COUNT (AUTO) 466 K/uL (130-400); RED BLOOD CELL COUNT(AUTO) 2.86 MIL/uL (4.50-6.20)
[2021-12-31 05:19] LABS: ALBUMIN 3.6 g/dL (3.5-5.0); CREATININE 0.6 mg/dL (0.5-1.5); POTASSIUM 3.5 mmol/L (3.5-5.1); TOTAL PROTEIN, SERUM 7.1 g/dL (6.0-8.3)
[2021-12-31] MEDS: KCL 20 MEQ ERTAB PO PRN ×2 (05:40→10:44)
[2021-12-31 08:00] VITALS: BP 132/71
[2021-12-31] MEDS: FLUOXETINE HCL 10 MG CAPSULE PO SCH (10:26)
[2021-12-31] MEDS: PANTOPRAZOLE 40 MG TAB DR PO SCH ×2 (10:26→19:58)
[2021-12-31] MEDS: AMLODIPINE 5 MG TAB PO SCH (10:26)
[2021-12-31] MEDS: THIAMINE HCL 100 MG TABLET PO SCH (10:26)
[2021-12-31] MEDS: MAGNESIUM OXIDE 400 MG TABLET PO SCH (10:31)
[2021-12-31] MEDS: NYSTATIN 30 GM CREAM.GM. TP SCH ×2 (10:45→20:04)
[2021-12-31] MEDS: CLOTRIMAZOLE 30 GM CREAM.GM. TP SCH (10:45)
[2021-12-31 11:32] VITALS: BP 128/69
[2021-12-31 16:00] VITALS: BP 128/74
[2021-12-31 20:00] VITALS: BP 136/79
[2021-12-31 23:56] VITALS: BP 111/63
[2022-01-01 03:56] VITALS: BP 122/79
[2022-01-01 05:41] LABS: HEMATOCRIT 29.1 % (42-54); MEAN CORPUSCULAR HEMOGLOBIN 34.3 pg (27.0-33.0); MEAN CORPUSCULAR HGB CONC 35.4 g/dL (32.0-36.0); RED CELL DISTRIBUTION WIDTH 11.9 % (11.0-15.5); WHITE BLOOD COUNT (AUTO) 4.6 K/uL (4.8-10.8)
[2022-01-01 05:55] LABS: ALBUMIN 3.8 g/dL (3.5-5.0); CREATININE 0.6 mg/dL (0.5-1.5); POTASSIUM 3.9 mmol/L (3.5-5.1); TOTAL PROTEIN, SERUM 7.5 g/dL (6.0-8.3)
[2022-01-01] MEDS: CEFAZOLIN SODIUM 1 GM VIAL IVP SCH ×3 (06:39→22:52)
[2022-01-01 08:00] VITALS: BP 118/57
[2022-01-01] MEDS: PANTOPRAZOLE 40 MG TAB DR PO SCH ×2 (09:13→20:35)
[2022-01-01] MEDS: FLUOXETINE HCL 10 MG CAPSULE PO SCH (09:13)
[2022-01-01] MEDS: AMLODIPINE 5 MG TAB PO SCH (09:13)
[2022-01-01] MEDS: THIAMINE HCL 100 MG TABLET PO SCH (09:13)
[2022-01-01] MEDS: MAGNESIUM OXIDE 400 MG TABLET PO SCH (09:13)
[2022-01-01] MEDS: NYSTATIN 30 GM CREAM.GM. TP SCH ×2 (09:14→20:49)
[2022-01-01] MEDS: CLOTRIMAZOLE 30 GM CREAM.GM. TP SCH (10:44)
[2022-01-01 12:00] VITALS: BP 109/56
[2022-01-01 16:00] VITALS: BP 137/84
[2022-01-01 20:18] VITALS: BP 113/65
[2022-01-02 00:03] VITALS: BP 108/62
[2022-01-02 04:03] VITALS: BP 123/92
[2022-01-02 04:44] LABS: HEMATOCRIT 29.5 % (42-54); MEAN CORPUSCULAR HEMOGLOBIN 34.2 pg (27.0-33.0); MEAN CORPUSCULAR HGB CONC 34.9 g/dL (32.0-36.0); RED BLOOD CELL COUNT(AUTO) 3.01 MIL/uL (4.50-6.20); RED CELL DISTRIBUTION WIDTH 12.1 % (11.0-15.5); WHITE BLOOD COUNT (AUTO) 5.7 K/uL (4.8-10.8)
[2022-01-02 05:05] LABS: ALBUMIN 3.7 g/dL (3.5-5.0); CREATININE 0.6 mg/dL (0.5-1.5); POTASSIUM 3.7 mmol/L (3.5-5.1); TOTAL PROTEIN, SERUM 7.2 g/dL (6.0-8.3)
[2022-01-02] MEDS: CEFAZOLIN SODIUM 1 GM VIAL IVP SCH ×3 (06:10→23:12)
[2022-01-02] MEDS: MAGNESIUM 2GM PREMIX 50ML 50 ML IV SCH ×2 (06:11→14:41)
[2022-01-02 07:45] VITALS: BP 126/72
[2022-01-02] MEDS: THIAMINE HCL 100 MG TABLET PO SCH (08:43)
[2022-01-02] MEDS: MAGNESIUM OXIDE 400 MG TABLET PO SCH (08:43)
[2022-01-02] MEDS: PANTOPRAZOLE 40 MG TAB DR PO SCH ×2 (08:43→20:39)
[2022-01-02] MEDS: AMLODIPINE 5 MG TAB PO SCH (08:43)
[2022-01-02] MEDS: FLUOXETINE HCL 10 MG CAPSULE PO SCH (08:44)
[2022-01-02] MEDS: CLOTRIMAZOLE 30 GM CREAM.GM. TP SCH (08:45)
[2022-01-02] MEDS: NYSTATIN 30 GM CREAM.GM. TP SCH ×2 (08:45→20:40)
[2022-01-02 11:50] VITALS: BP 125/71
[2022-01-02] MEDS ORDERED: MAGNESIUM 2GM PREMIX 50ML 50 ML IV PRN (13:30)
[2022-01-02 15:45] VITALS: BP 112/72
[2022-01-02 20:31] VITALS: BP 129/79
[2022-01-03] VITALS (7 sets, daily range): BP systolic 104–137; BP diastolic 59–90
[2022-01-03] MEDS: ACETAMINOPHEN 325 MG TAB PO PRN ×2 (02:57→18:08)
[2022-01-03] MEDS ORDERED: DIPHENHYDRAMINE HCL 25 MG CAPSULE PO STA (03:33)
[2022-01-03] MEDS ORDERED: DIPHENHYDRAMINE HCL 25 MG CAPSULE ONE (03:38)
[2022-01-03] MEDS: CEFAZOLIN SODIUM 1 GM VIAL IVP SCH (05:50)
[2022-01-03] MEDS: MAGNESIUM 2GM PREMIX 50ML 50 ML IV SCH (06:43)
[2022-01-03] MEDS: FLUOXETINE HCL 10 MG CAPSULE PO SCH (10:09)
[2022-01-03] MEDS: PANTOPRAZOLE 40 MG TAB DR PO SCH ×2 (10:09→20:35)
[2022-01-03] MEDS: MAGNESIUM OXIDE 400 MG TABLET PO SCH (10:09)
[2022-01-03] MEDS: AMLODIPINE 5 MG TAB PO SCH (10:09)
[2022-01-03] MEDS: THIAMINE HCL 100 MG TABLET PO SCH (10:09)
[2022-01-03] MEDS: CLOTRIMAZOLE 30 GM CREAM.GM. TP SCH (10:09)
[2022-01-03] MEDS: NYSTATIN 30 GM CREAM.GM. TP SCH ×2 (10:09→20:35)
[2022-01-04 04:29] VITALS: BP 121/69
[2022-01-04 05:26] LABS: BASOPHILS % (AUTO) 1.7 % (0.0-5.0); EOSINOPHILS % (AUTO) 13.1 % (0.0-8.0); HEMATOCRIT 28.7 % (42-54); LYMPHOCYTES % (AUTO) 24.2 % (21.0-51.0); MEAN CORPUSCULAR HEMOGLOBIN 34.6 pg (27.0-33.0); MEAN CORPUSCULAR HGB CONC 34.5 g/dL (32.0-36.0); MEAN CORPUSCULAR VOLUME 100.3 fL (79-99); MONOCYTES % (AUTO) 11.1 % (3.0-13.0); NEUTROPHILS % (AUTO) 49.4 % (40.0-77.0); PLATELET COUNT (AUTO) 384 K/uL (130-400); RED BLOOD CELL COUNT(AUTO) 2.86 MIL/uL (4.50-6.20); RED CELL DISTRIBUTION WIDTH 12.1 % (11.0-15.5); WHITE BLOOD COUNT (AUTO) 4.1 K/uL (4.8-10.8)
[2022-01-04 05:51] LABS: ALANINE AMINOTRANSFERASE 18 U/L (12-78); ALBUMIN 3.7 g/dL (3.5-5.0); ASPARTATE AMINOTRANSFERASE 17 U/L (10-37); CARBON DIOXIDE 29 mmol/L (21-32); CHLORIDE 97 mmol/L (101-111); CREATININE 0.7 mg/dL (0.5-1.5); GLOMERULAR FILTR. RATE CALC 121 mL/min (>60); GLUCOSE,RANDOM 84 mg/dL (70-105); POTASSIUM 4.2 mmol/L (3.5-5.1); SODIUM SERUM 132 mmol/L (136-145); TOTAL PROTEIN, SERUM 7.3 g/dL (6.0-8.3); UREA NITROGEN, BLOOD 15 mg/dL (7-18)
[2022-01-04 06:31] LABS: CRP QUANTITATIVE < 2.00 mg/L (0.00-9.0)
[2022-01-04 06:45] LABS: ERYTHROCYTE SEDIMENTATION RATE 35 MM/HR (0-20)
[2022-01-04] MEDS: FLUOXETINE HCL 10 MG CAPSULE PO SCH (08:07)
[2022-01-04] MEDS: MAGNESIUM OXIDE 400 MG TABLET PO SCH (08:07)
[2022-01-04] MEDS: PANTOPRAZOLE 40 MG TAB DR PO SCH (08:08)
[2022-01-04] MEDS: AMLODIPINE 5 MG TAB PO SCH (08:08)
[2022-01-04] MEDS: THIAMINE HCL 100 MG TABLET PO SCH (08:08)
[2022-01-04] MEDS ORDERED: AMLO-257 PO (13:32)
[2022-01-04] MEDS ORDERED: MAGN400T25 PO (13:32)
== END 2022-01-04 09:30 | disposition home or self-care (01) | DRG 871 ==
LOC: EDH 14:40 → EDHIP 14:41 → 3DH 22:12
PROVIDERS: ADMIT Hospitalist; ATTEND Hospitalist
PROC: 0DB58ZX Excision of Esophagus, Via Natural or Artificial Opening Endoscopic, Diagnostic (ICD-10-PCS; principal; 2021-12-15)
PROC: 0DB68ZX Excision of Stomach, Via Natural or Artificial Opening Endoscopic, Diagnostic (ICD-10-PCS; 2021-12-15)
DX: A41.9 Sepsis, unspecified organism (principal); K21.01 Gastro-esophageal reflux disease with esophagitis, with bleeding; K29.71 Gastritis, unspecified, with bleeding; Z20.822 Contact with and (suspected) exposure to COVID-19; K29.81 Duodenitis with bleeding; D62 Acute posthemorrhagic anemia; E87.1 Hypo-osmolality and hyponatremia; N17.9 Acute kidney failure, unspecified; I85.10 Secondary esophageal varices without bleeding; I95.9 Hypotension, unspecified; F10.10 Alcohol abuse, uncomplicated; B95.61 Methicillin susceptible Staphylococcus aureus infection as the cause of diseases classified elsewhere; E83.42 Hypomagnesemia; E86.0 Dehydration; E87.6 Hypokalemia; I10 Essential (primary) hypertension; K74.60 Unspecified cirrhosis of liver; F12.90 Cannabis use, unspecified, uncomplicated; F14.90 Cocaine use, unspecified, uncomplicated; Z91.19 Patient's noncompliance with other medical treatment and regimen; Z90.49 Acquired absence of other specified parts of digestive tract; Z82.49 Family history of ischemic heart disease and other diseases of the circulatory system; Z74.01 Bed confinement status
CPT/HCPCS: 36415; 43239; 71045; 76700; 80048; 80053; 80305; 81001; 82270; 82570; 83735; 84100; 84132; 84145; 84300; 84484; 85014; 85018; 85025; 85027; 85610; 85651; 85730; 86140; 86677; 86850; 86900; 86901; 87040; 87071; 87077; 87186; 87205; 87635; 93005; 93306; 94640; 99291; C9113; G0378; J0690; J2354; J2405; J2543; J2704; J3411; J3475; J3490; J7030; J7050; Q0163

== ENCOUNTER 2022-12-20 18:49 | Emergency (ER) | payer MEDICAID ==
[~2022-12-20] VITALS: Ht 157.5 cm; Wt 70.3 kg
[~2022-12-20 18:49] MED LIST: AMLO-257 PO; FLUO10CA21 PO; FOLI0.4T6 PO; MAGN400T25 PO; PANT40TA PO; THIA500T3 PO
[2022-12-20 19:23] LABS: BASOPHILS # (AUTO) 0.05 K/uL (0.00-0.20); BASOPHILS % (AUTO) 1.3 % (0.0-5.0); EOSINOPHILS # (AUTO) 0.16 K/uL (0.00-0.70); EOSINOPHILS % (AUTO) 4.1 % (0.0-8.0); HEMATOCRIT 28.4 % (42-54); IMMATURE GRANULOCYTE ABSOLUTE 0.02 K/uL (0-1); LYMPHOCYTES # (AUTO) 1.1 K/uL (1.0-4.8); LYMPHOCYTES % (AUTO) 27.1 % (21.0-51.0); MEAN CORPUSCULAR HEMOGLOBIN 33.7 pg (27.0-33.0); MEAN CORPUSCULAR HGB CONC 36.6 g/dL (32.0-36.0); MEAN CORPUSCULAR VOLUME 91.9 fL (79-99); MONOCYTES # (AUTO) 0.5 K/uL (0.1-1.0); MONOCYTES % (AUTO) 12.6 % (3.0-13.0); NEUTROPHILS # (AUTO) 2.1 K/uL (1.8-7.7); NEUTROPHILS % (AUTO) 54.4 % (40.0-77.0); PLATELET COUNT (AUTO) 267 K/uL (130-400); RED BLOOD CELL COUNT(AUTO) 3.09 MIL/uL (4.50-6.20); RED CELL DISTRIBUTION WIDTH 11.5 % (11.0-15.5); WHITE BLOOD COUNT (AUTO) 3.9 K/uL (4.8-10.8)
[2022-12-20 19:44] LABS: ALBUMIN 3.6 g/dL (3.5-5.0); BILIRUBIN,TOTAL 0.3 mg/dL (0.2-1.0); CREATININE 0.6 mg/dL (0.5-1.5); POTASSIUM 3.7 mmol/L (3.5-5.1); TOTAL PROTEIN, SERUM 6.5 g/dL (6.0-8.3)
[2022-12-20] MEDS ORDERED: DIAZEPAM 5 MG/ML 2 ML SYG IVP ONE (20:30)
[2022-12-20 20:39] LABS: APPEARANCE,URINE CLEAR (CLEAR); BILIRUBIN,URINE NEGATIVE (NEGATIVE); COLOR,URINE COLORLESS (YELLOW); GLUCOSE, URINE (UA) NEGATIVE (NEGATIVE); KETONES,URINE NEGATIVE (NEGATIVE); LEUKOCYTE ESTERASE ,URINE NEGATIVE Leu/uL (NEGATIVE); NITRATE,URINE NEGATIVE (NEGATIVE); OCCULT BLOOD,URINE NEGATIVE (NEGATIVE); PROTEIN,URINE NEGATIVE (NEGATIVE); UROBILINOGEN,URINE 0.2 mg/dL (0.2-1.0)
[2022-12-20 20:49] LABS: ADD UA MICROSCOPIC YES
[2022-12-20 21:18] LABS: RBC,URINE 0-1 /HPF (0-1)
[2022-12-20 22:05] VITALS: BP 151/97; PULSE 68; RESP 16; O2SAT 100
[2022-12-20] MEDS ORDERED: MULT-1367 PO (22:15)
[2022-12-20 22:27] LABS: BAND NEUTROPHILS % (MANUAL) 3 % (0-2); EOSINOPHILS % (MANUAL) 2 % (1-6); LYMPHOCYTES % (MANUAL) 25 % (22-44); MAN.DIFF COMMENT-IMPRESSION MANUAL DIFFERENTIAL; MONOCYTES % (MANUAL) 7 % (2-9); REACTIVE LYMPHOCYTES 5 % (0-0); SEGMENTED NEUTROPHILS % 58 % (40-70); TOTAL CELLS COUNTED 100
[2022-12-20 22:28] LABS: PLATELET MORPHOLOGY COMMENT LARGE PLTS PRESENT
== END 2022-12-20 22:28 | disposition home or self-care (01) ==
LOC: EDH 18:49
DX: M62.838 Other muscle spasm (principal); D64.9 Anemia, unspecified; E83.51 Hypocalcemia; I10 Essential (primary) hypertension; Z90.49 Acquired absence of other specified parts of digestive tract; Z79.899 Other long term (current) drug therapy; Z98.890 Other specified postprocedural states
CPT/HCPCS: 99285; 96374; 71045; 82550 ×2; 83874; 84484; 80053; 85025; 83970; 81001; 36415; 93005; J3360

== ENCOUNTER 2023-04-12 15:54 | Emergency (ER) | payer MEDICAID, OTHER ==
[~2023-04-12] VITALS: Ht 167.6 cm; Wt 72.6 kg
[~2023-04-12 15:54] MED LIST changes: +MULT-1367 PO
[2023-04-12] MEDS ORDERED: AMOX1TAB16 PO (16:22)
[2023-04-12] MEDS ORDERED: IBUP-2077 PO (16:22)
[2023-04-12] MEDS ORDERED: AMOX/CLAV 875/125MG TAB PO ONE (16:30)
[2023-04-12] MEDS ORDERED: BACITRACIN 1 EACH PACKET TP ONE (16:44)
[2023-04-12 17:21] VITALS: BP 135/82; PULSE 66; RESP 14; O2SAT 98
== END 2023-04-12 18:22 | disposition home or self-care (01) ==
LOC: EDH 15:54
DX: S90.872A Other superficial bite of left foot, initial encounter (principal); I10 Essential (primary) hypertension; Z79.899 Other long term (current) drug therapy; Z98.890 Other specified postprocedural states; Y93.89 Activity, other specified; Y92.89 Other specified places as the place of occurrence of the external cause; Y99.8 Other external cause status

== ENCOUNTER 2024-12-11 13:24 | Emergency (ER) | payer OTHER, MEDICAID ==
[~2024-12-11] VITALS: Ht 167.6 cm; Wt 80.3 kg
[~2024-12-11 13:24] MED LIST changes: +AMOX1TAB16 PO; -FLUO10CA21 PO; +FLUO10CA51 PO; +IBUP-2077 PO
--- NOTE | 2024-12-11 13:42 | ERN ---
ED Note History of Present Illness Stated Complaint: BACK PAIN Chief Complaint: Low Back Pain/Injury Time Seen by MD: 13:29 Time Seen by Midlevel: 13:30 Dictation: 64-year-old male who presents to the emergency department due to reported having sustained a fall outside of his house yesterday due to having lost his balance. Patient states that he landed on his right hip yesterday. He states that the pain is primarily worsened with movement. At worse, he feels the pain as a 10/10. He states that when he does not move the pain is tolerable at a 7/10. Patient denies having sustained any other type of injury. Upon initial evalu ation, the patient presents with a normal neurovascular examination. 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 Home Meds Active Scripts Ibuprofen (Ibuprofen 800 mg Tab) 800 Mg Tab, 800 MG PO Q6H PRN for PAIN, #30 TAB Prov:TANMAY LAYTON NP 04/12/23 Amoxicillin/Potassium Clav (Amox Tr-K Clv 875-125 mg Tab) 875 Mg-125 Mg Tablet, 1 EACH PO BID for 5 Days, #10 TAB 0 Refills Prov:TANMAY LAYTON NP 04/12/23 Multivitamin (Multivitamin) 1 Each Tablet, 1 EACH PO DAILY, #30 TAB 3 Refills Prov:SEB HUITRON Sr., MD 12/20/22 Magnesium Oxide (Mag-Oxide) 400 Mg Tablet, 400 MG PO DAILY, #7 TAB 0 Refills Prov:SAMIA LOCKWOOD 01/04/22 Amlodipine Besylate (Amlodipine Besylate) 5 Mg Tablet, 5 MG PO DAILY, #30 TAB 0 Refills Prov:SAMIA LOCKWOOD 01/04/22 Fluoxetine HCl (Prozac) 10 Mg Capsule, 20 MG PO DAILY for 30 Days, #30 CAP Prov:ANNIKA JONES NP 12/23/21 Thiamine HCl (Thiamine HCl) 500 Mg Tablet, 500 MG PO DAILY, #30 TAB 0 Refills Prov:SAMIA LOCKWOOD 12/16/21 Folic Acid (Folic Acid) 0.4 Mg Tablet, 0.4 MG PO DAILY, #30 TAB 0 Refills Prov:SAMIA LOCKWOOD 8/8/22 Pantoprazole Sodium (Protonix) 40 Mg Tablet., 40 MG PO BID, #60 TAB 1 Refill Prov:SAMIA LOCKWOOD AGPCNP 12/16/21 Past Medical History Past Medical History: High Cholesterol, Hypertension Surgical History: Appendectomy Surgical History Other: BILAT EYE SX Social History: ETOH, Lives alone RN Note Reviewed/Agreed w/PFSH: Yes Review of System Dictation MS/Extremity: Right hip pain Initial Vital Sign VS Vital Signs Date Time Temp Pulse Resp B/P (MAP) Pulse Ox O2 Delivery O2 Flow Rate FiO2 12/11/24 13:27 98.8 74 18 132/64 97 Room Air 0 12/11/24 14:00 21 Physical Exam Dictation General: awake, alert, NAD Head/Face: Normocephalic, atraumatic Eyes: PERRL, EOMI ENT: Oral mucosa moist Neck: Trachea midline, supple Cardiovascular: RRR, no edema Respiratory: Symmetrical, non-labored Abdomen: Soft, non-tender, non-distended, no guarding. Skin: Warm, dry, good turgor, no rash MS/Extremity: Pulses equal, no cyanosis, neurovascular intact, painful range of motion and tenderness of the right lateral hip Neuro: COAx4, GCS 15, steady gait, Psych: Normal behavior, mood, and affect normal Results (Laboratory/Radiology) X-RAY Comment: Bilateral hip x-ray with no cortical anomalies or deformities as interpreted by me. ED Course ED Course Orders Procedure Category Date Status Time Hip Bilat 3-4vw RAD 12/11/24 Taken 13:36 Ketorolac PHA 12/11/24 Complete Tromethamine 30mg/Ml 14:00 Current Medications Medications (Trade) Dose Ordered Sig/Leena Route PRN Reason Start Time Stop Time Status Last Admin Dose Admin Ketorolac Tromethamine (toRADol) 30 mg ONCE ONCE IM 12/11/24 14:00 12/11/24 14:01 DC 12/11/24 13:52 Vital Signs Date Time Temp Pulse Resp B/P (MAP) Pulse Ox O2 Delivery O2 Flow Rate FiO2 12/11/24 14:00 78 18 132/67 96 Room Air* 0 21 12/11/24 13:27 98.8 74 18 132/64 97 Room Air 0 Medical Decision Making MDM MDM: Differential diagnosis: Right hip sprain, right hip contusion, right femoral neck fracture. Rationale: Tests considered and ordered secondary to shared decision making include: Previous outside records reviewed: Old ER visits. Risk of complication and/or morbidity or mortality of patient management: None Medications-Per medication reconciliation Need for hospitalization: Patient does not meet criteria for hospitalization. Need for emergency major/minor surgery: No There are no social concerns with this patient. Prescription drug management Prescriptions will include symptomatic care Patient's prior external medical records from other ER visits were reviewed by me as indicated. Prior testing and results from previous visits were reviewed. Prior tests were taken into account with medical decision making and resource utilization, independent historian/historians were used to obtain complete medical history. I independently interpreted the test that were performed, results were reviewed by me and considered findings on radiology if ordered. Medical management and examination interpretation discussions were had by me with other qualified healthcare professionals as indicated for the patient's care. DX & DISP Disposition: Discharge Departure Impression: Primary Impression: Sprain of right hip Condition: Stable Referrals: WARREN MARC JR., MD (PCP) Time of Disposition: 14:30 BOO ORDAZ Dec 11, 2024 13:42
[2024-12-11 14:47] VITALS: BP 127/69; PULSE 77; RESP 18; TEMP 98.6; O2SAT 96
--- NOTE | 2024-12-11 15:17 | HMCIMG ---
EXAM: Bilateral hip, 3-4 views. CLINICAL HISTORY: pain COMPARISON: None provided. FINDINGS: BONES: No acute fracture or aggressive appearing osseous lesion. JOINTS: No dislocation. Pubic symphyseal joint osteoarthritis with bridging osteophyte noted at the dorsal margin. SOFT TISSUES: The soft tissues are unremarkable. IMPRESSION: 1. No acute findings. /[place]
== END 2024-12-11 14:47 | disposition home or self-care (01) ==
LOC: EDH 13:24
DX: S73.101A Unspecified sprain of right hip, initial encounter (principal); E78.00 Pure hypercholesterolemia, unspecified; I10 Essential (primary) hypertension; Z79.899 Other long term (current) drug therapy; Z90.49 Acquired absence of other specified parts of digestive tract; W18.39XA Other fall on same level, initial encounter; Y93.89 Activity, other specified; Y92.89 Other specified places as the place of occurrence of the external cause; Y99.8 Other external cause status
CPT/HCPCS: 99284; 73522; 96372; J1885